=== PATIENT | female | born 1965 | race Native Hawaiian/Other Pacific Islander ===

== ENCOUNTER 2020-05-18 16:16 | Emergency (ER) | payer OTHER ==
[~2020-05-18] VITALS: Ht 162.6 cm; Wt 81.6 kg
[2020-05-18 16:24] VITALS: TEMP 98.3
[2020-05-18 18:08] VITALS: BP 109/72
== END 2020-05-18 18:08 | disposition home or self-care (01) ==
LOC: ED 16:16
DX: U07.1 COVID-19 (principal); J12.89 Other viral pneumonia; F17.210 Nicotine dependence, cigarettes, uncomplicated
CPT/HCPCS: 87502; 87635; 87651; 99283; U0003